=== PATIENT | male | born 1995 | race Caucasian/White ===

== ENCOUNTER 2024-05-06 15:24 | Emergency (ER) | payer OTHER, BC, SELFPAY ==
[2024-05-06 15:38] VITALS: BP 154/97; PULSE 69; RESP 18; TEMP 36.9; O2SAT 100
--- NOTE | 2024-05-06 17:30 | ED.GENADULT ---
HPI - General Adult General Chief complaint: Wound/Laceration Stated complaint: Laceration to Finger Source: patient Mode of arrival: ambulatory Limitations: no limitations History of Present Illness HPI narrative: Patient presents for evaluation of a laceration to the 3rd digit of the right hand. 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 This occurred just prior to arrival. A medic at his job put a synthetic clotting product on the digit. He reports minimal pain, without numerical rating or descriptive quality. He denies any paresthesias, loss of range of motion, fever, chills, nausea, vomiting, purulence from the affected area. He is not diabetic. He states his last tetanus shot was within the past three month. He is right hand dominant. Related Data Allergies Allergy/AdvReac Type Severity Reaction Status Date / Time No Known Drug Allergies Allergy Verified 05/06/12 18:23 Review of Systems Review of Systems: CONSTITUTIONAL: Denies fever, chills, or sweats. EYES: Denies visual changes, redness, or discharge. ENT: Denies rhinorrhea, congestion, sore throat, or otalgia. CARDIOVASCULAR: Denies chest pain, palpitations, or edema. RESPIRATORY: Denies cough or dyspnea. GASTROINTESTINAL: Denies abdominal pain, nausea, vomiting, or diarrhea. GENITOURINARY: Denies dysuria or hematuria. SKIN: Reports laceration to the 3rd digit of the right hand MUSCULOSKELETAL: Reports pain in the 3rd digit of the right hand at the site of the laceration. Denies any pain. Denies loss of range of motion NEUROLOGIC: Denies headache, numbness, dizziness, or weakness. PSYCHIATRIC: Denies anxiety or depression. [facility] Past Medical History Medical History No pertinent past medical history Surgical History Surgical History No pertinent past surgical history Family History Family History Mother Family history non-contributory Social History Social History Smoking status: Never smoker Substance use: never Gender identity (if verbalized by the patient): Male Spiritual care concerns: No Exam Narrative: GENERAL: Well-appearing, well-nourished, and in no acute distress. HEAD: Normocephalic, atraumatic. EYES: PERRLA and EOMI. ENT: Nares clear, no rhinorrhea or epistaxis. Mucous membranes moist. Oropharynx without tonsillar hypertrophy exudate or other lesions. Bilateral TMs pearly marion nonbulging NECK: Supple. No adenopathy or masses. No carotid bruits or JVD CHEST: Clear to auscultation. No respiratory distress. No wheezes rales or rhonchi HEART: Regular rate and rhythm. No murmur heard. Normal peripheral pulses. ABDOMEN: Soft, nontender, nondistended, normal active bowel sounds. EXTREMITIES: Normal range of motion. No edema. SKIN: There is a 1.4 cm linear laceration to the dorsal lateral aspect of the 3rd digit of the right hand. There is a dried yellow product overlying the laceration NEURO: No focal deficits. Alert and oriented x3. PSYCH: Normal mood and affect. Course Course Emergency Course: This is a 28-year-old male who presented for evaluation of a laceration to the 3rd digit of the right hand. He requested that the remove the synthetic clot. We did so with hydrogen peroxide. Wound was thoroughly cleaned. Two sutures were placed and patient tolerated well. Provided with a splint. He is neurovascularly intact. Discharge with cephalexin. He is up-to-date on tetanus. Advised to follow up with workmen's Comp. Instructed on wound care. Go to the ER for signs of infection. Pt in agreement with plan of care. Level of Care: Express Care Visit Vital Signs Vital signs: Vital Signs Temperature 36.
== END 2024-05-06 17:41 | disposition home or self-care (01) ==
PROVIDERS: Emergency Provider Nurse Practitioner
DX: S61.212A Laceration without foreign body of right middle finger without damage to nail, initial encounter (principal); W45.8XXA Other foreign body or object entering through skin, initial encounter; Y99.0 Civilian activity done for income or pay
CPT/HCPCS: 12001; 99203; G0463

== ENCOUNTER 2024-05-21 13:50 | Emergency (ER) | payer OTHER, SELFPAY ==
[2024-05-21 14:08] VITALS: BP 139/79; PULSE 79; RESP 20; TEMP 36.9; O2SAT 100
--- NOTE | 2024-05-21 14:13 | ED.SKABFB ---
HPI - Skin/Abscess/Foreign Bdy General Chief complaint: Wound/Laceration Stated complaint: suture removal Time Seen by Provider: 05/21/24 14:04 Source: patient, RN notes reviewed and old records reviewed Mode of arrival: ambulatory Limitations: no limitations History of Present Illness HPI narrative: Patient presents today requesting suture removal. Two sutures were placed in his right 3rd finger on 05/09/24. Denies any difficulties since they were placed. Related Data Allergies Allergy/AdvReac Type Severity Reaction Status Date / Time No Known Drug Allergies Allergy Verified 05/06/12 18:23 Review of Systems Review of Systems: CONSTITUTIONAL: Denies body aches, fever, chills, or sweats. EYES: Denies visual changes, redness, or discharge. ENT: Denies rhinorrhea, congestion, sore throat, or otalgia. CARDIOVASCULAR: Denies chest pain, palpitations, or edema. RESPIRATORY: Denies cough or dyspnea. GASTROINTESTINAL: Denies abdominal pain, nausea, vomiting, or diarrhea. GENITOURINARY: Denies dysuria or hematuria. SKIN: Healing wound to finger MUSCULOSKELETAL: Denies back pain, joint pain, or myalgia. NEUROLOGIC: Denies headache, numbness, tingling, or weakness. PSYCH: Denies depression or anxiety. PMFSH Past Medical History Medical History No pertinent past medical history Surgical History Surgical History No pertinent past surgical history Family History Family History Mother Family history non-contributory Social History Social History Smoking status: Never smoker Substance use: never Gender identity (if verbalized by the patient): Male Spiritual care concerns: No Comments At time of signature, I have reviewed and agree with nursing past medical, surgical, social and family history unless otherwise noted. Please see nursing chart for further information. There is no relevant family history pertinent to the presenting complaint Exam Narrative: GENERAL: Well-appearing, well-nourished, and in no acute distress. HEAD: Normocephalic, atraumatic. EYES: EOMI. No redness or drainage. Conjunctivae normal. ENT: Mucous membranes pink and moist. NECK: Normal AROM. CHEST: No respiratory distress. EXTREMITIES: Normal range of motion. No edema. SKIN: Warm, dry, no rash. Capillary refill normal. Normal skin turgor. Two intact sutures to the right 3rd finger with healing wound. No signs of infection NEURO: No focal deficits. Alert and oriented x3. Gait steady. PSYCH: Normal affect. No signs of depression or anxiety. Course Course Level of Care: Express Care Visit Vital Signs Vital signs: Vital Signs Temperature 98.5 F 05/21/24 14:08 Pulse Rate 79 05/21/24 14:08 Respiratory Rate 20 05/21/24 14:08 Blood Pressure 139/79 05/21/24 14:08 Pulse Oximetry 100 05/21/24 14:08 Oxygen Delivery Room Air 05/21/24 14:08 Temperature 98.5 F 05/21/24 14:08 Pulse Rate 79 05/21/24 14:08 Respiratory Rate 20 05/21/24 14:08 Blood Pressure 139/79 05/21/24 14:08 Pulse Oximetry 100 05/21/24 14:08 Oxygen Delivery Room Air 05/21/24 14:08 Reviewed Procedures Other Procedure Procedure 1: Other Procedure: 2 intact sutures removed from right 3rd finger. Patient tolerated procedure well. MDM - Skin/Abscess/Foreign Bdy MDM Narrative Medical decision making narrative: Sutures removed. Questions answered. Anticipatory guidance given. Differential Diagnosis Differential diagnosis: Likely abscess of skin or subcutaneous tissue, cellulitis and other (Suture removal) Critical Care Time Critical Care Time Critical Care Time: No Discharge Plan Discharge Clinical Impression: Visit for suture removal Patient Di
== END 2024-05-21 14:19 | disposition home or self-care (01) ==
PROVIDERS: Emergency Provider Nurse Practitioner
DX: S61.212D Laceration without foreign body of right middle finger without damage to nail, subsequent encounter (principal); X58.XXXD Exposure to other specified factors, subsequent encounter
CPT/HCPCS: 99211; G0463